=== PATIENT | female | born 1995 | race Caucasian/White ===

== ENCOUNTER 2016-04-11 19:35 | Emergency (ER) | payer OTHER ==
[2016-04-11 19:43] VITALS: BP 131/67
[2016-04-11] MEDS ORDERED: Ondansetron ODT TAB* 4 MG PO ONE (19:55)
[2016-04-11] MEDS ORDERED: Acetaminophen TAB* 325 MG PO ONE (19:58)
--- NOTE | 2016-04-11 20:00 | UC ---
UC General HPI - HPI Summary HPI Summary: pt c/o of sudden on set of myalgia, nausea, diarrhea, headache and decreased appetite that began last night about 1 hour after eating a sandwich from a gas station. - History of Current Complaint Chief Complaint: UCGeneralIllness Stated Complaint: NAUSEA/BODYACHES/DIARRHEA Time Seen by Provider: 04/11/16 19:38 Hx Obtained From: Patient Onset/Duration: Sudden Onset, Lasting Hours Timing: Constant Onset Severity: Mild Current Severity: Mild Associated Signs & Symptoms: Positive: Diarrhea, Fever, Headache - Allergy/Home Medications Allergies/Adverse Reactions: Allergies Allergy/AdvReac Type Severity Reaction Status Date / Time No Known Allergies Allergy Verified 04/11/16 19:43 PMH/Surg Hx/FS Hx/Imm Hx Previously Healthy: Yes Endocrine History Of: Denies: Diabetes, Thyroid Disease Cardiovascular History Of: Denies: Cardiac Disorders, Hypertension, Pacemaker/ICD Respiratory History Of: Denies: COPD, Asthma GI/ History Of: Denies: Ulcer - Surgical History Surgical History: None - Family History Known Family History: Positive: Diabetes - maternal grandfather Negative: Cardiac Disease, Hypertension, Blood Disorder - Social History Lives: With Family Alcohol Use: None Substance Use Type: None Smoking Status (MU): Former Smoker Review of Systems Constitutional: Fever, Chills, Fatigue Skin: Negative Eyes: Negative ENT: Negative Respiratory: Negative Cardiovascular: Negative Gastrointestinal: Abdominal Pain, Diarrhea, Other - nausea Genitourinary: Negative Motor: Negative Neurovascular: Negative Musculoskeletal: Myalgia Neurological: Headache Psychological: Negative All Other Systems Reviewed And Are Negative: Yes Physical Exam Triage Information Reviewed: Yes Appearance: Ill-Appearing Vital Signs: Initial Vital Signs Temp 100.0 F 04/11/16 19:40 Pulse 111 04/11/16 19:40 Resp 16 04/11/16 19:40 BP 131/67 04/11/16 19:40 Pulse Ox 99 04/11/16 19:40 Eye Exam: Normal ENT Exam: Normal Neck exam: Normal Respiratory Exam: Normal Cardiovascular Exam: Normal Abdominal Exam: Other Abdomen Description: Positive: Other: - generalized tenderness with palpation Musculoskeletal Exam: Normal Neurological Exam: Normal Psychological Exam: Normal Skin Exam: Normal Course/Dx - Differential Dx - Multi-Symptom Differential Diagnoses: Other - food poisoning Provider Diagnoses: gastroenteritis. food poisoning-? Discharge - Discharge Plan Condition: Stable Disposition: HOME Prescriptions: Ondansetron ODT TAB* [Zofran Odt TAB*] 8 mg PO Q8H PRN #12 tab.odt PRN Reason: Nausea Patient Education Materials: Gastroenteritis (ED), Food Poisoning (ED) Forms: *Work Release Referrals: Good Cain MD [Primary Care Provider] -
== END 2016-04-11 20:18 | disposition home or self-care (01) ==
LOC: UCCORT 19:35
DX: K52.9 Noninfective gastroenteritis and colitis, unspecified (principal); Z87.891 Personal history of nicotine dependence
CPT/HCPCS: 99212; A9270-GY; G0463

== ENCOUNTER 2016-06-16 17:29 | Emergency (ER) | payer OTHER | END 2016-06-16 19:08 | disposition left against medical advice (07) | LOC: UCCORT 17:29 | DX: K08.89 Other specified disorders of teeth and supporting structures (principal); Z53.21 Procedure and treatment not carried out due to patient leaving prior to being seen by health care provider ==

== ENCOUNTER 2016-09-17 22:09 | Emergency (ER) | payer OTHER ==
--- NOTE | 2016-09-17 23:21 | ED ---
Addi Carmen Salem, scribed for Panfilo Anand MD on 09/17/16 at 2317 . Head Injury - HPI Summary HPI Summary: Patient is a 20 y/o F who presents to the ED with s/p fall at 2100 today. She had used EtOH and lost footing while ambulating. She reports GRESHAM and burning to left-side of head. She denies N/V or LOC. She denies taking any medication for pain. - History Of Current Complaint Chief Complaint: EDGeneral Stated Complaint: FALL/HEAD INJURY Time Seen by Provider: 09/17/16 23:13 Hx Obtained From: Patient Hx Last Menstrual Period: 03/31/16 Mechanism Of Injury: Fall From A Standing Position Onset/Duration: Started Hours Ago, Traumatic, Still Present Onset of Pain: Immediate Severity Currently: Moderate Severity Initially: Moderate Pain Intensity: 9 Pain Scale Used: 0-10 Numeric Location of Head Injury: Other: - Left-side. Location: Discrete At: - Head. Associated Signs And Symptoms: Negative - Allergies/Home Medications Allergies/Adverse Reactions: Allergies Allergy/AdvReac Type Severity Reaction Status Date / Time No Known Allergies Allergy Verified 09/17/16 22:14 PMH/Surg Hx/FS Hx/Imm Hx Endocrine/Hematology History: Denies: Hx Diabetes, Hx Thyroid Disease Cardiovascular History: Denies: Hx Hypertension, Hx Pacemaker/ICD Respiratory History: Denies: Hx Asthma, Hx Chronic Obstructive Pulmonary Disease (COPD) GI History: Denies: Hx Ulcer Sensory History: Denies: Hx Hearing Aid Psychiatric History: Denies: Hx Panic Disorder Infectious Disease History: Denies: Hx Clostridium Difficile, Hx Hepatitis, Hx Human Immunodeficiency Virus (HIV), Hx of Known/Suspected MRSA, Hx Shingles, Hx Tuberculosis, Hx Known/ Suspected VRE, Hx Known/Suspected VRSA, History Other Infectious Disease, Traveled Outside the [place] in Last 30 Days - Family History Known Family History: Positive: Diabetes - maternal grandfather Negative: Cardiac Disease, Hypertension, Blood Disorder - Social History Alcohol Use: None Substance Use Type: Reports: None Smoking Status (MU): Former Smoker Review of Systems Negative: Fever Negative: Vomiting, Nausea Neurological: Other - Burning, left side of head. No LOC. Positive: Headache All Other Systems Reviewed And Are Negative: Yes Physical Exam Triage Information Reviewed: Yes Vital Signs On Initial Exam: Initial Vitals Temp Pulse Resp BP Pulse Ox 98.4 F 85 16 137/83 100 09/17/16 22:10 09/17/16 22:10 09/17/16 22:10 09/17/16 22:10 09/17/16 22:10 Vital Signs Reviewed: Yes Appearance: Positive: Well-Appearing, No Pain Distress Skin: Positive: Warm Head/Face: Positive: Normal Head/Face Inspection Eyes: Positive: JYOTI Neck: Positive: Supple Respiratory/Lung Sounds: Positive: Clear to Auscultation, Breath Sounds Present Cardiovascular: Positive: RRR Abdomen Description: Positive: Nontender, Soft Bowel Sounds: Positive: Present Musculoskeletal: Positive: Strength/ROM Intact Neurological: Positive: Sensory/Motor Intact, Alert, Oriented to Person Place, Time, Normal Gait Diagnostics - Vital Signs Vital Signs Temp Pulse Resp BP Pulse Ox 09/17/16 22:10 98.4 F 85 16 137/83 100 - Laboratory Lab Statement: Any lab studies that have been ordered have been reviewed, and results considered in the medical decision making process. - CT BRAIN CT Interpretation Completed By: Radiologist - Impression: No mass effect or intracranial hemorrhage. No acute traumatic injuries identified. Re-Evaluation - Re-Evaluation First Eval Re-Evaluation Time: 00:13 Change: Improved Comment: Reviewed results. Head Injury Course/Dx Course Of Treatment: 20 y/o F presents with s/p fall at 2100 today. She had used EtOH and lost footing while ambulating. She reports GRESHAM and burning to left- side of head. She denies N/V or LOC. CT of brain shows, per radiology, Impression: No mass effect or intracranial hemorrhage. No acute traumatic injuries identified. Pt will be DC'd. - Diagnoses Provider Diagnoses: Closed head injury Discharge - Discharge Plan Condition: Stable Disposition: HOME Patient Education Materials: Head Injury (ED) Referrals: Good Cain MD [Primary Care Provider] - Additional Instructions: Please follow up with your primary care provider. The documentation as recorded by the Addi corbin Salem accurately reflects the service I personally performed and the decisions made by Kika duran David, MD.
[2016-09-18 00:28] VITALS: BP 121/76
--- NOTE | 2016-09-18 08:34 | RAD ---
Indication: Headaches after fall. CT of the brain was performed without IV contrast. No prior study is available for comparison. Ventricular structures are midline. No midline shift is noted. The extra-axial spaces are unremarkable. There is no evidence of intracranial mass or hemorrhage. No other high or low density lesions are identified. IMPRESSION: No intracranial mass or hemorrhage is noted.
== END 2016-09-18 00:27 | disposition home or self-care (01) ==
LOC: ED 22:09
DX: S09.90XA Unspecified injury of head, initial encounter (principal); R51 Headache; W19.XXXA Unspecified fall, initial encounter; Y93.9 Activity, unspecified; Y92.9 Unspecified place or not applicable; Z87.891 Personal history of nicotine dependence
CPT/HCPCS: 70450; 99282

== ENCOUNTER 2016-11-21 13:53 | Emergency (ER) | payer BC, OTHER ==
[2016-11-21] MEDS ORDERED: Ondansetron ODT TAB* 4 MG PO ONE (16:31)
[2016-11-21] MEDS ORDERED: Ketorolac INJ* 60 MG/2 ML VIAL IM ONE (16:31)
[2016-11-21] MEDS ORDERED: Famotidine TAB* 20 MG PO ONE (16:31)
[2016-11-21 16:33] VITALS: BP 120/73
--- NOTE | 2016-11-21 16:46 | UC ---
UC General HPI - HPI Summary HPI Summary: patient has 2 complaints: 1. N/V/D since last night, she thinks she ate somethig at [employer] that did not sit well with her, 2. do to the vomiting feels like her sciatica has acted up, has a known growth on her spine that has been causing some impingment - History of Current Complaint Stated Complaint: FOOD POISONING Time Seen by Provider: 11/21/16 16:31 Hx Obtained From: Patient Hx Last Menstrual Period: 03/31/16 Onset/Duration: Sudden Onset, Lasting Hours Timing: Constant Onset Severity: Moderate Current Severity: Moderate Associated Signs & Symptoms: Positive: Back Pain, Diarrhea, Vomiting - Allergy/Home Medications Allergies/Adverse Reactions: Allergies Allergy/AdvReac Type Severity Reaction Status Date / Time No Known Allergies Allergy Verified 11/21/16 16:30 PMH/Surg Hx/FS Hx/Imm Hx Previously Healthy: Yes - Surgical History Surgical History: None - Family History Known Family History: Positive: Diabetes - maternal grandfather Negative: Cardiac Disease, Hypertension, Blood Disorder - Social History Alcohol Use: None Substance Use Type: None Smoking Status (MU): Former Smoker Review of Systems Constitutional: Negative Skin: Negative Eyes: Negative ENT: Negative Respiratory: Negative Cardiovascular: Negative Gastrointestinal: Abdominal Pain, Vomiting, Diarrhea, Nausea Genitourinary: Negative Motor: Negative Neurovascular: Negative Musculoskeletal: Arthralgia, Myalgia, Other: - radiates down left leg Neurological: Negative Psychological: Negative Is Patient Immunocompromised?: No All Other Systems Reviewed And Are Negative: Yes Physical Exam Triage Information Reviewed: Yes Appearance: Well-Nourished, Ill-Appearing, Pain Distress Vital Signs Reviewed: Yes Eye Exam: Normal ENT Exam: Normal Dental Exam: Normal Neck exam: Normal Respiratory Exam: Normal Respiratory: Positive: Chest non-tender, Lungs clear, Normal breath sounds Cardiovascular Exam: Normal Cardiovascular: Positive: RRR, No Murmur, Pulses Normal - LLL pain with palpation, mild Abdomen Description: Positive: No Organomegaly, CVA Tenderness (R) - negn, CVA Tenderness (L) - eg Bowel Sounds: Positive: Hyperactive Musculoskeletal Exam: Normal Neurological Exam: Normal Psychological Exam: Normal Skin Exam: Normal Course/Dx - Course Course Of Treatment: hx obtained, exam performed ,meds reviewed, given meds for symtpom relief, improvement with toradol for back pain and zofran for the nausea - Differential Dx - Multi-Symptom Provider Diagnoses: nausea/ vomiting/diarrhea. sciatica Discharge - Discharge Plan Condition: Stable Disposition: HOME Patient Education Materials: Acute Nausea and Vomiting (ED) Referrals: Good Cain MD [Primary Care Provider] - Additional Instructions: 1. increase fluid intake as tolerated, rest 2. Use the medication as prescribed. 3. Follow up if not improving in the next 24-48 hours 4. No ibuprofen or aleve for the next 8 hours due to the Toradol shot
== END 2016-11-21 17:10 | disposition home or self-care (01) ==
LOC: UCCORT 13:53
DX: R11.2 Nausea with vomiting, unspecified (principal); R19.7 Diarrhea, unspecified; M54.30 Sciatica, unspecified side; Z87.891 Personal history of nicotine dependence
CPT/HCPCS: 96372; 99212; A9270-GY; G0463; J1885

== ENCOUNTER 2017-04-08 09:26 | Emergency (ER) | payer BC ==
[2017-04-08 12:52] VITALS: BP 124/74
--- NOTE | 2017-04-08 13:09 | UC ---
FLU HPI - HPI Summary HPI Summary: Pt c/o sudden onset of fatigue and nausea. Pt is concerned for . Pt is not consistent with use of BCP. Last period in 02/20 - History of Current Complaint Chief Complaint: UCGeneralIllness Stated Complaint: NAUSEA Time Seen by Provider: 04/08/17 13:00 Hx Obtained From: Patient Hx Last Menstrual Period: 02/23/17 ?: No Onset/Duration: Sudden Onset, Lasting Days - 3, Still Present Severity Currently: Mild Severity Initially: Mild Pain Intensity: 0 Associated Signs & Symptoms: Positive: Myalgia, Nasal Congestion - Risk Factors Influenza Risk Factors: Negative - Allergy/Home Medications Allergies/Adverse Reactions: Allergies Allergy/AdvReac Type Severity Reaction Status Date / Time No Known Allergies Allergy Verified 04/08/17 12:48 Home Medications: Home Medications ALPRAZolam TAB* [Xanax TAB*] 0.5 mg PO TID PRN 04/08/17 [History Confirmed 04/08] Citalopram TAB* [CeleXA TAB*] 10 mg PO DAILY 04/08/17 [History Confirmed ] PMH/Surg Hx/FS Hx/Imm Hx Previously Healthy: Yes - Surgical History Surgical History: None - Family History Known Family History: Positive: Diabetes - maternal grandfather Negative: Cardiac Disease, Hypertension, Blood Disorder - Social History Occupation: Employed Full-time Lives: With Family Alcohol Use: Occasionally Substance Use Type: None Smoking Status (MU): Former Smoker Have You Smoked in the Last Year: No Review of Systems Constitutional: Fatigue Skin: Negative Eyes: Negative ENT: Negative Respiratory: Negative Cardiovascular: Negative Gastrointestinal: Nausea Genitourinary: Negative Motor: Negative Neurovascular: Negative Musculoskeletal: Negative Neurological: Negative Psychological: Negative Is Patient Immunocompromised?: No All Other Systems Reviewed And Are Negative: Yes Physical Exam Triage Information Reviewed: Yes Appearance: Well-Appearing Vital Signs: Initial Vital Signs Temp 98.8 F 04/08/17 12:47 Pulse 77 04/08/17 12:47 Resp 16 04/08/17 12:47 BP 124/74 04/08/17 12:47 Pulse Ox 100 04/08/17 12:47 Vital Signs Reviewed: Yes Eye Exam: Normal ENT Exam: Normal Dental Exam: Normal Neck exam: Normal Respiratory Exam: Normal Cardiovascular Exam: Normal Abdominal Exam: Normal Abdomen Description: Positive: Nontender Musculoskeletal Exam: Normal Neurological Exam: Normal Psychological Exam: Normal Skin Exam: Normal Flu Course/Dx - Differential Dx/Diagnosis Differential Diagnosis/HQI/PQRI: Bronchitis, Influenza, Other - Provider Diagnoses: nausea. viral syndrome Discharge - Discharge Plan Condition: Stable Disposition: HOME Patient Education Materials: Viral Syndrome (ED) Referrals: Good Cain MD [Primary Care Provider] - If Needed Additional Instructions: Please follow up with your PCP as needed or return to clinic as needed.
== END 2017-04-08 13:15 | disposition home or self-care (01) ==
LOC: UCCORT 09:26
DX: R11.0 Nausea (principal); B34.9 Viral infection, unspecified; Z32.02 Encounter for pregnancy test, result negative; Z72.89 Other problems related to lifestyle; Z87.891 Personal history of nicotine dependence
CPT/HCPCS: 84702; 99211; G0463

== ENCOUNTER 2017-06-14 16:16 | Emergency (ER) | payer BC ==
--- OUTSIDE RECORDS SUMMARY | 2017-06-14 16:40 | XMS REPORT ---
:1995 External Reference #:[id number] Author Organization [facility] 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 Moisés Charles NP Primary Care Physician Unavailable Payers Type Date Identification Numbers Payment Provider Subscriber Commercial Policy Number: [id number] Kwame Kimball PayID: [id number] [address] [address] [place] [address] Problems Date Description Provider Status Onset: 05/04/2017 Chronic interstitial cystitis LOUISE Del Rosario Active Note: managed by Urology Onset: 05/04/2017 Generalized anxiety disorder LOUISE Del Rosario Active Onset: 05/04/2017 Headache LOUISE Del Rosario Active Onset: 05/04/2017 Asthma without status asthmaticus LOUISE Del Rosario Active Family History Date Family Member(s) Problem(s) Comments Father No Current Problems Mother Anxiety Mother Depression Mother Endometriosis Paternal Grandfather Diabetes Maternal Grandmother Breast Cancer Social History Type Date Description Comments Lives With Mother Diet Patient follows no dietary restrictions Occupation [employer] ETOH Use Never used alcohol ETOH Use Occasionally consumes alcohol Smoking Patient is a former smoker Daily Caffeine Current Caffeine User 2-3 drinks daily Allergies, Adverse Reactions, Alerts Date Description Reaction Status Severity Comments 04/15/2017 NKDA active Medications Medication Date Status Form Strength Qnty SIG Indications Ordering Provider Ondansetron HCL 04/22 Active Tablets 4mg 24tab 1 tab N83.209 s every 6hr Melvin, CORK INSULATOR HELPER as needed for nausea Amitriptyline 04/15 Active Tablets 25mg 15tab 1/2 tablet R51 [facility] s by mouth Clcarol, CORK INSULATOR HELPER every night an hour before at bedtime Ventolin HFA 04/15 Active Aerosol 108(90Bas 18gm 2 puffs by J45.998 [facility] e) mouth Clune, CORK INSULATOR HELPER mcg/Act every 4 hours as needed Alprazolam Active Tablets 0.5mg Unknown /0000 Citalopram Active Tablets 40mg White, Chong Hydrobromide /0000 L, RN CORK INSULATOR HELPER Tri-Sprintec Active Tablets 0.18/0.21 White, Chong /0000 5/0.25 L, RN CORK INSULATOR HELPER mg-35 mcg Oxycodone-Aceta 04/22 Hx Tablets 5-325mg 28tab 1 by mouth N83.209 madelyn Albrecht s q6 hours MD - as needed 05/23 moderate to severe pain Reference #: [id number] Tramadol HCL Hx Tablets 50mg White, Chong /0000 L, RN CORK INSULATOR HELPER - 05/23 Immunizations CPT Code Status Date Vaccine Lot # [id number] Given 04/15/2017 Influenza Virus Vaccine, Quadrivalent, Slit Virus, [id number] Im Use Vital Signs Date Vital Result Comment 05/23/2017 BP Systolic Sitting Left Arm 126 mmHg BP Diastolic Sitting Left Arm 76 mmHg Heart Rate 88 /min Respiratory Rate 18 /min Height 63 inches 5'3" Weight 144.25 lb BMI (Body Mass Index) 25.5 kg/m2 BSA (Body Surface Area) 1.68 m2 [place] body weight in kilograms 52 04/22/2017 BP Systolic Sitting Left Arm 114 mmHg BP Diastolic Sitting Left Arm 72 mmHg Heart Rate 80 /min Respiratory Rate 18 /min Height 63 inches 5'3" Weight 144.12 lb BMI (Body Mass Index) 25.5 kg/m2 BSA (Body Surface Area) 1.68 m2 [place] body weight in kilograms 52 04/15/2017 BP Systolic Sitting Left Arm 118 mmHg BP Diastolic Sitting Left Arm 72 mmHg Heart Rate 72 /min Respiratory Rate 18 /min Height 63 inches 5'3" Weight 142.12 lb BMI (Body Mass Index) 25.2 kg/m2 BSA (Body Surface Area) 1.67 m2 [place] body weight in kilograms 52 Last Menstrual Period [id number] Results Test Date Test Result H/L Range Note Urine Culture 04/22/2017 Urine Culture MIXED URETHRAL F <SEE 1, 2 NOTE> Quantity 10,000 - 50,000 <SEE NOTE> 1, 3 1 R30.0 2 MIXED URETHRAL ASHLEY 3 10,000 - 50,000 CFU/mL Procedures Date CPT Code Description Status 01/21/2017 59735 Echocardiogram Complete Completed Encounters Type Date Location Provider CPT E/M Dx Office Visit 05/23/2017 [facility] LOUISE Del Rosario 89861 N30.10 2:15p R51 Office Visit 04/15/2017 11:15a [facility] LOUISE Del Rosario 97407 R35.0 M54.5 F41.1 R51 J45.998 Plan of Care Future Appointment(s):06/16/2017 3:00 pm - LOUISE Del Rosario at [facility]05/23/2017 - JAZMIN Del RosarioPN30.10 Interstitial cystitis ( chronic) without hematuriaComments:with h/o ovarian cysts as well as interstitial cystitis would send to urogynecology groupFollow up:3-4 weeks recheck HAR51 HeadacheComments:Improved on Amitriptyline - however with S/E of tiredness. Will decrease Amitriptyline to 1/2 tabletto see if this decreases the day time symptoms
--- OUTSIDE RECORDS SUMMARY | 2017-06-14 16:40 | XMS REPORT ---
:1995 External Reference #:[id number] Author Organization [facility] 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 Moisés Charles NP Primary Care Physician Unavailable Payers Type Date Identification Numbers Payment Provider Subscriber Commercial Policy Number: [id number] Kwame Kimball PayID: [id number] [address] [address] [place] [address] Problems Date Description Provider Status Onset: 05/04/2017 [...] follows no dietary restrictions Occupation [employer] ETOH Use Never used alcohol ETOH Use Occasionally consumes alcohol Smoking Patient is a former smoker Daily Caffeine Current Caffeine User 2-3 drinks daily Allergies, Adverse Reactions, Alerts Date Description Reaction Status Severity Comments 04/15/2017 NKDA active Medications Medication Date Status Form Strength Qnty SIG Indications Ordering Provider Ondansetron HCL 04/22 Active Tablets 4mg 24tab 1 tab N83.209 s every 6hr Melvin, FLAT IRONER as needed for nausea Amitriptyline 04/15 Active Tablets 25mg 15tab 1/2 tablet R51 [facility] s by mouth Clcarol, FLAT IRONER every night an hour before at bedtime Ventolin HFA 04/15 Active Aerosol 108(90Bas 18gm 2 puffs by J45.998 [facility] e) mouth Clune, FLAT IRONER mcg/Act every 4 hours as needed Alprazolam Active Tablets 0.5mg Unknown /0000 Citalopram Active Tablets 40mg White, Chong Hydrobromide /0000 L, RN FLAT IRONER Tri-Sprintec Active Tablets 0.18/0.21 White, Chong /0000 5/0.25 L, RN FLAT IRONER mg-35 mcg Oxycodone-Aceta 04/22 Hx Tablets 5-325mg 28tab 1 by mouth N83.209 madelyn Albrecht s q6 hours MD - as needed 05/23 moderate to severe pain Reference #: [id number] Tramadol HCL Hx Tablets 50mg White, Chong /0000 L, RN FLAT IRONER - 05/23 Immunizations CPT Code Status Date Vaccine Lot # [id number] Given 04/15/2017 Influenza Virus Vaccine, Quadrivalent, Slit Virus, [id number] Im Use Vital Signs Date Vital Result Comment 05/23/2017 BP Systolic Sitting Left Arm 126 mmHg BP Diastolic Sitting Left Arm 76 mmHg Heart Rate 88 /min Respiratory Rate 18 /min Height 63 inches 5'3" Weight 144.25 lb BMI (Body Mass Index) 25.5 kg/m2 BSA (Body Surface Area) 1.68 m2 [place] body weight in kilograms 52 04/22/2017 BP Systolic Sitting Left Arm 114 mmHg BP Diastolic Sitting Left Arm 72 mmHg Heart Rate 80 /min Respiratory Rate 18 /min Height 63 inches 5'3" Weight 144.12 lb BMI (Body Mass Index) 25.5 kg/m2 BSA (Body Surface Area) 1.68 m2 [place] body weight in kilograms 52 04/15/2017 BP Systolic Sitting Left Arm 118 mmHg BP Diastolic Sitting Left Arm 72 mmHg Heart Rate 72 /min Respiratory Rate 18 /min Height 63 inches 5'3" Weight 142.12 lb BMI (Body Mass Index) 25.2 kg/m2 BSA (Body Surface Area) 1.67 m2 [place] body weight in kilograms 52 Last Menstrual Period [id number] Results Test Date Test Result H/L Range Note Urine Culture 04/22/2017 Urine Culture MIXED URETHRAL F <SEE 1, 2 NOTE> Quantity 10,000 - 50,000 <SEE NOTE> 1, 3 1 R30.0 2 MIXED URETHRAL ASHLEY 3 10,000 - 50,000 CFU/mL Procedures Date CPT Code Description Status 01/21/2017 04707 Echocardiogram Complete Completed Encounters Type Date Location Provider CPT E/M Dx Office Visit 05/23/2017 [facility] LOUISE Del Rosario 50218 N30.10 2:15p R51 Office Visit 04/22/2017 2:00p [facility] LOUISE Del Rosario 58837 N83.209 R30.0 Office Visit 04/15/2017 11:15a [facility] LOUISE Del Rosario 62499 R35.0 M54.5 F41.1 R51 J45.998 Plan of Care Future Appointment(s):06/16/2017 3:00 pm - LOUISE Del Rosario at [facility]05/23/2017 - MUSA Dle Rosario30.10 Interstitial cystitis ( chronic) without hematuriaComments:with h/o ovarian cysts as well as interstitial cystitis would send to urogynecology groupFollow up:3-4 weeks recheck HAR51 HeadacheComments:Improved on Amitriptyline - however with S/E of tiredness. Will decrease Amitriptyline to 1/2 tabletto see if this decreases the day time symptoms
--- OUTSIDE RECORDS SUMMARY | 2017-06-14 16:40 | XMS REPORT ---
:1995 External Reference #:[id number] Author Organization [facility] Address [address], [address] [place] [address] Phone [phone] Care Team Providers Name Role Phone Moisés Charles NP Care Team Information Community Resource Consultant Unavailable Moisés Charles NP Primary Care Physician Unavailable Payers Type Date Identification Numbers Payment Provider Subscriber Commercial Policy Number: [id number] Kwame Kimball PayID: [id number] [address] [address] [place] [address] Problems Date Description Provider Status Onset: 05/04/2017 [...] follows no dietary restrictions Occupation [employer] ETOH Use Never used alcohol ETOH Use Occasionally consumes alcohol Smoking Patient is a former smoker Daily Caffeine Current Caffeine User 2-3 drinks daily Allergies, Adverse Reactions, Alerts Date Description Reaction Status Severity Comments 04/15/2017 NKDA active Medications Medication Date Status Form Strength Qnty SIG Indications Ordering Provider Ondansetron HCL 04/22 Active Tablets 4mg 24tab 1 tab N83.209 s every 6hr Melvin, COMMERCIAL HVAC TECHNICIAN as needed for nausea Amitriptyline 04/15 Active Tablets 25mg 15tab 1/2 tablet R51 [facility] s by mouth Clcarol, COMMERCIAL HVAC TECHNICIAN every night an hour before at bedtime Ventolin HFA 04/15 Active Aerosol 108(90Bas 18gm 2 puffs by J45.998 [facility] e) mouth Clune, COMMERCIAL HVAC TECHNICIAN mcg/Act every 4 hours as needed Alprazolam Active Tablets 0.5mg Unknown /0000 Citalopram Active Tablets 40mg White, Chong Hydrobromide /0000 L, RN COMMERCIAL HVAC TECHNICIAN Tri-Sprintec Active Tablets 0.18/0.21 White, Chong /0000 5/0.25 L, RN COMMERCIAL HVAC TECHNICIAN mg-35 mcg Oxycodone-Aceta 04/22 Hx Tablets 5-325mg 28tab 1 by mouth N83.209 madelyn Albrecht s q6 hours MD - as needed 05/23 moderate to severe pain Reference #: [id number] Tramadol HCL Hx Tablets 50mg White, Chong /0000 L, RN COMMERCIAL HVAC TECHNICIAN - 05/23 Immunizations CPT Code Status Date Vaccine Lot # [id number] Given 04/15/2017 Influenza Virus Vaccine, Quadrivalent, Slit Virus, [id number] Im Use Vital Signs Date Vital Result Comment 05/23/2017 BP Systolic Sitting Left Arm 126 mmHg BP Diastolic Sitting Left Arm 76 mmHg Heart Rate 88 /min Respiratory Rate 18 /min Height 63 inches 5'3" Weight 144.25 lb BMI (Body Mass Index) 25.5 kg/m2 BSA (Body Surface Area) 1.68 m2 [place] body weight in kilograms 52 04/22/2017 BP Systolic Sitting Left Arm 114 mmHg BP Diastolic Sitting Left Arm 72 mmHg Heart Rate 80 /min Respiratory Rate 18 /min Height 63 inches 5'3" Weight 144.12 lb BMI (Body Mass Index) 25.5 kg/m2 BSA (Body Surface Area) 1.68 m2 [place] body weight in kilograms 52 04/15/2017 BP Systolic Sitting Left Arm 118 mmHg BP Diastolic Sitting Left Arm 72 mmHg Heart Rate 72 /min Respiratory Rate 18 /min Height 63 inches 5'3" Weight 142.12 lb BMI (Body Mass Index) 25.2 kg/m2 BSA (Body Surface Area) 1.67 m2 [place] body weight in kilograms 52 Last Menstrual Period [id number] Results Test Date Test Result H/L Range Note Urine Culture 04/22/2017 Urine Culture MIXED URETHRAL F <SEE 1, 2 NOTE> Quantity 10,000 - 50,000 <SEE NOTE> 1, 3 1 R30.0 2 MIXED URETHRAL ASHLEY 3 10,000 - 50,000 CFU/mL Procedures Date CPT Code Description Status 01/21/2017 07651 Echocardiogram Complete Completed Encounters Type Date Location Provider CPT E/M Dx Office Visit 05/23/2017 [facility] LOUISE Del Rosario 17952 N30.10 2:15p R51 Plan of Care Future Appointment(s):06/16/2017 3:00 pm - LOUISE Del Rosario at [facility]05/23/2017 - JAZMIN Del RosarioPN30.10 Interstitial cystitis ( chronic) without hematuriaComments:with h/o ovarian cysts as well as interstitial cystitis would send to urogynecology groupFollow up:3-4 weeks recheck HAR51 HeadacheComments:Improved on Amitriptyline - however with S/E of tiredness. Will decrease Amitriptyline to 1/2 tabletto see if this decreases the day time symptoms
[2017-06-14 16:48] VITALS: BP 122/80
--- NOTE | 2017-06-14 18:03 | UC ---
UC General HPI - HPI Summary HPI Summary: pt c/o burning with urination for about 2 weeks. pt was seen in ER and dx with a ruptured ovarian cyst. The ER did a pelvic and sent cutures. she f/u with Dr Jack in mid May after that visit. She had some vaginal itching and was tx for BV with Clindamycin. The itching resolved. She noted some urinary burning then which is still present thus here. She denies any discharge or odor but does have a new partner. no abdominal pain or fever. - History of Current Complaint Chief Complaint: UCGU Stated Complaint: urinary Time Seen by Provider: 06/14/17 17:33 Hx Obtained From: Patient Hx Last Menstrual Period: 05/27/17 Timing: Constant Pain Intensity: 0 Aggravating: nothing Alleviating: nothing Associated Signs & Symptoms: Positive: Dysuria. Negative: Abdominal Pain, Fever - Allergy/Home Medications Allergies/Adverse Reactions: Allergies Allergy/AdvReac Type Severity Reaction Status Date / Time No Known Allergies Allergy Verified 06/14/17 16:48 Home Medications: Home Medications Amitriptyline TAB* [Elavil TAB*] 25 mg PO BEDTIME 06/14/17 [History Confirmed ] Norgestimate-Ethinyl Estradiol [Trinessa Tablet] 1 each PO BEDTIME 06/14/17 [ History Confirmed 06/14/17] PMH/Surg Hx/FS Hx/Imm Hx - Additional Past Medical History Additional PMH: ovarian cyst, BV, cystitis Psychological History: Anxiety - Surgical History Surgical History: None - Family History Known Family History: Positive: Diabetes - maternal grandfather Negative: Cardiac Disease, Hypertension, Blood Disorder - Social History Lives: With Family Alcohol Use: Rare Substance Use Type: None Smoking Status (MU): Former Smoker Have You Smoked in the Last Year: No - Immunization History Vaccination Up to Date: Yes Review of Systems Constitutional: Negative Skin: Negative Eyes: Negative ENT: Negative Respiratory: Negative Cardiovascular: Negative Gastrointestinal: Negative Genitourinary: Dysuria Motor: Negative Neurovascular: Negative Musculoskeletal: Negative Neurological: Negative Psychological: Negative Is Patient Immunocompromised?: No All Other Systems Reviewed And Are Negative: Yes Physical Exam Triage Information Reviewed: Yes Appearance: Well-Appearing Vital Signs: Initial Vital Signs Temp 99.7 F 06/14/17 16:38 Pulse 73 06/14/17 16:38 Resp 17 06/14/17 16:38 BP 122/80 06/14/17 16:38 Pulse Ox 100 06/14/17 16:38 Vital Signs Reviewed: Yes Eyes: Positive: Conjunctiva Clear ENT: Positive: Normal ENT inspection Neck: Positive: Supple, Nontender, No Lymphadenopathy Respiratory: Positive: Lungs clear, Normal breath sounds Cardiovascular: Positive: RRR, No Murmur, Pulses Normal Abdomen Description: Positive: Nontender, No Organomegaly, Soft. Negative: CVA Tenderness (R), CVA Tenderness (L), Distended, Guarding Bowel Sounds: Positive: Present Pelvic Exam: Positive: External Exam Normal, Speculum Exam Normal - cervix friable, slight bleeding from R side of OS with culutres, No Cerv. Motion Tender , No Masses. Negative: Tender w/ Cervical Motion, Tender Adnexa, Tender Uterus Musculoskeletal: Positive: ROM Intact Neurological: Positive: Alert Psychological: Positive: Age Appropriate Behavior Skin Exam: Normal Diagnostics - Laboratory Diagnostic Studies Completed/Ordered: u/a=unremarkable, culture is pending. hcg= neg, pelvic cultures pending Course/Dx - Course Course Of Treatment: no acute abdomen, no overt std but cultures pending. will tx 3 days Bactrim and refer to cam maker - Differential Dx - Multi-Symptom Provider Diagnoses: Dysuria Discharge - Sign-Out/Discharge Documenting (check all that apply): Discharge - Discharge Plan Condition: Stable Disposition: HOME Prescriptions: Sulfamethox/Trimethoprim DS* [Bactrim DS 800/160 TAB*] 1 tab PO BID #6 tab Patient Education Materials: Dysuria (ED) Referrals: Ruma Charles NP [Primary Care Provider] - If Needed Panfilo Jack MD [Medical Doctor] - 3 Days - Billing Disposition and Condition Condition: STABLE Disposition: HOME
--- NOTE | 2017-06-17 07:07 | UC ---
- Progress Note Progress Note: notify pt no UTI stop antibiotic see pcp if still symptomatic Discharge - Sign-Out/Discharge Documenting (check all that apply): Post-Discharge Follow Up - Discharge Plan Condition: Stable Disposition: HOME Prescriptions: Sulfamethox/Trimethoprim DS* [Bactrim DS 800/160 TAB*] 1 tab PO BID #6 tab Patient Education Materials: Dysuria (ED) Referrals: Panfilo Jack MD [Medical Doctor] - 3 Days Ruma Charles NP [Primary Care Provider] - If Needed - Billing Disposition and Condition Condition: STABLE Disposition: HOME
== END 2017-06-14 18:19 | disposition home or self-care (01) ==
LOC: UCCORT 16:16
DX: R30.0 Dysuria (principal); Z87.891 Personal history of nicotine dependence; Z32.02 Encounter for pregnancy test, result negative
CPT/HCPCS: 81003; 84702; 87086; 87480; 87491; 87510; 87591; 87661; 99212; G0463

== ENCOUNTER 2017-08-17 18:28 | Emergency (ER) | payer SELFPAY ==
[2017-08-17 18:50] VITALS: BP 127/75
--- NOTE | 2017-08-17 19:10 | UC ---
UC General HPI - HPI Summary HPI Summary: 21 yo female c/o sore throat, myalgias, h/a. Mild cough, chest "tight". + itchy ears. No rash. No gi/gu sx. - History of Current Complaint Chief Complaint: UCGeneralIllness Stated Complaint: SORE THROAT Time Seen by Provider: 08/17/17 18:58 Hx Obtained From: Patient Hx Last Menstrual Period: 08/16/17 Pain Intensity: 8 - Allergy/Home Medications Allergies/Adverse Reactions: Allergies Allergy/AdvReac Type Severity Reaction Status Date / Time No Known Allergies Allergy Verified 08/17/17 18:47 PMH/Surg Hx/FS Hx/Imm Hx Previously Healthy: Yes Respiratory History: Asthma - Surgical History Surgical History: None - Family History Known Family History: Positive: Diabetes - maternal grandfather Negative: Cardiac Disease, Hypertension, Blood Disorder - Social History Alcohol Use: Rare Substance Use Type: None Smoking Status (MU): Former Smoker Have You Smoked in the Last Year: No - Immunization History Vaccination Up to Date: Yes Review of Systems Constitutional: Fatigue Skin: Negative Eyes: Negative ENT: Sore Throat, Other - see hpi Respiratory: Other - see hpi Cardiovascular: Negative Gastrointestinal: Negative Genitourinary: Negative Motor: Negative Neurovascular: Negative Musculoskeletal: Myalgia Neurological: Headache Psychological: Negative Is Patient Immunocompromised?: No All Other Systems Reviewed And Are Negative: Yes Physical Exam Triage Information Reviewed: Yes Appearance: Well-Nourished Vital Signs: Initial Vital Signs Temp 98.9 F 08/17/17 18:45 Pulse 96 08/17/17 18:45 Resp 14 08/17/17 18:45 BP 127/75 08/17/17 18:45 Pulse Ox 99 08/17/17 18:45 Vital Signs Reviewed: Yes Eye Exam: Normal ENT: Positive: Pharyngeal erythema, TM dull, Other - tonsillar sores, no lindsay exudates. uvula midline. tongue ok. Neck exam: Normal Neck: Positive: Supple, Nontender Respiratory Exam: Normal Respiratory: Positive: Chest non-tender, Lungs clear, Normal breath sounds, No respiratory distress, No accessory muscle use Cardiovascular Exam: Normal Cardiovascular: Positive: RRR, No Murmur, Pulses Normal, Brisk Capillary Refill Abdominal Exam: Normal Abdomen Description: Positive: Nontender Musculoskeletal Exam: Normal Neurological Exam: Normal - grossly nonfocal Psychological Exam: Normal - conversing easily and appropriately Skin Exam: Normal - no visible or reported rash Course/Dx - Course Course Of Treatment: RST x 2 attempted, both "invalid.". As such, throat cx sent. D/w pt. Will start abx, while awaiting cx results. She may have been exposed to mononucleosis in the past, not sure if she contracted it. As such, will test for this as well. Reviewed coa / tx plan. Questions as posed answered to the best of my ability. - Differential Dx - Multi-Symptom Provider Diagnoses: Acute tonsillitis Discharge - Sign-Out/Discharge Documenting (check all that apply): Discharge/Admit/Transfer - Discharge Plan Condition: Stable Disposition: HOME Prescriptions: Albuterol HFA INHALER* [Ventolin HFA Inhaler*] 1 - 2 puff INH Q6H PRN #1 mdi PRN Reason: Wheezing Amoxicillin PO (*) [Amoxicillin 875 MG (*)] 875 mg PO BID #20 tab Fluconazole [Diflucan 150 MG (NF)] 150 mg PO DAILY #2 tab Neomyc/Polym/HC 1% OTIC SUSP* [Cortisporin Otic Susp 1%*] 4 drop BOTH EARS TID # 1 btl Patient Education Materials: Tonsillitis (ED) Forms: *Work Release Referrals: Ruma Charles NP [Primary Care Provider] - Additional Instructions: Throat culture has been sent. Johnston test has been sent. If strep throat culture is negative, then you may stop the antibiotic. - Billing Disposition and Condition Condition: STABLE Disposition: Home
== END 2017-08-17 19:59 | disposition home or self-care (01) ==
LOC: UCCORT 18:28
DX: J03.90 Acute tonsillitis, unspecified (principal); R05 Cough; R07.89 Other chest pain; R51 Headache; M79.1 Myalgia; Z87.891 Personal history of nicotine dependence
CPT/HCPCS: 36415; 86308; 86664; 86665; 87070; 99212; G0463

== ENCOUNTER 2017-09-01 15:52 | Emergency (ER) | payer BC ==
--- NOTE | 2017-09-01 16:06 | UC ---
Complaint Female HPI - HPI Summary HPI Summary: 21 yo female presents with dysuria and vaginal discharge that began 2 days ago. She tells me that she has an history of interstitial cystitis, but recently developed urinary frequency and burning with urination. Also has noticed some white and yellow discharge vaginally. Was last sexually active 2-3 weeks ago with a new partner and the sex was unprotected. She would like STD testing today. Denies fever, chills, SOB, chest pain, abdominal pain, n/v/d/c. LMP was - History Of Current Complaint Stated Complaint: URINARY Time Seen by Provider: 09/01/17 16:06 Hx Obtained From: Patient Hx Last Menstrual Period: 08/16/17 Onset/Duration: Gradual Onset Timing: Constant Severity Initially: Mild Severity Currently: Mild Pain Intensity: 3 Pain Scale Used: 0-10 Numeric - Allergies/Home Medications Allergies/Adverse Reactions: Allergies Allergy/AdvReac Type Severity Reaction Status Date / Time No Known Allergies Allergy Verified 09/01/17 16:13 PMH/Surg Hx/FS Hx/Imm Hx - Additional Past Medical History Additional PMH: Interstitial cystitis Psychological History: Anxiety - Surgical History Surgical History: None - Family History Known Family History: Positive: Diabetes - maternal grandfather Negative: Cardiac Disease, Hypertension, Blood Disorder - Social History Lives: With Family Alcohol Use: Rare Substance Use Type: None Smoking Status (MU): Former Smoker Have You Smoked in the Last Year: No - Immunization History Vaccination Up to Date: Yes Review of Systems Constitutional: Negative Skin: Negative Respiratory: Negative Cardiovascular: Negative Gastrointestinal: Negative Genitourinary: Dysuria, Frequency, Vaginal/Penile Discharge Neurovascular: Negative Neurological: Negative Psychological: Negative All Other Systems Reviewed And Are Negative: Yes Physical Exam - Summary Physical Exam Summary: GENERAL: NAD. WDWN. No pain distress. SKIN: No rashes, sores, lesions, or open wounds. NECK: Supple. Nontender. No lymphadenopathy. CHEST: CTAB. No r/r/w. No accessory muscle use. Breathing comfortably and in no distress. CV: RRR. Without m/r/g. Pulses intact. Brisk cap refill. ABDOMEN: Soft. NTTP. No distention or guarding. No organomegaly. No CVA tenderness. Bowel sounds present NEURO: Alert. CN II-XII grossly intact. PSYCH: Age appropriate behavior. Triage Information Reviewed: Yes Vital Signs: Vital Signs: Temp Pulse Resp BP Pulse Ox 100.2 F 68 20 113/66 100 09/01/17 16:15 09/01/17 16:15 09/01/17 16:15 09/01/17 16:15 09/01/17 16:15 Laboratory Tests 09/01/17 16:29 POC Urine Color Yellow POC Urine Clarity Slightly cloudy POC Urine pH 7.5 POC Ur Specif Dighton 1.020 POC Urine Protein Negative POC Ur Glucose (UA) Negative POC Urine Ketones Negative POC Urine Blood Trace-intact A POC Urine Nitrite Negative POC Urine Bilirubin Negative POC Urine Urobilinogen 0.2 POC U Leukocyte Esteras Trace A Pelvic Exam: Positive: External Exam Normal, No Cerv. Motion Tender, No Masses, Discharge - Thin white, Other - Assisted by Ane RN. Negative: Active Bleeding, Lesions, Mass Complaint Female Dx - Course Course Of Treatment: UA with trace leuks. Vaginal exam is highly suspicious for BV. Will treat for BV and hold treatment for ?UTI as UA was weakly positive for infection. Will send urine for culture and treat if positive. Cultures obtained for vaginal GC/Chlamydia, BV, and yeast. Labs drawn for HIV, RPR, and Hepatitis. - Differential Dx/Diagnosis Provider Diagnoses: Bacterial Vaginosis Discharge - Sign-Out/Discharge Documenting (check all that apply): Discharge/Admit/Transfer - Discharge Plan Condition: Stable Disposition: HOME Prescriptions: metroNIDAZOLE [Flagyl] 500 mg PO BID #14 tablet Patient Education Materials: Bacterial Vaginosis (ED) Referrals: Ruma Charles NP [Primary Care Provider] - Additional Instructions: If you develop a fever, shortness of breath, chest pain, new or worsening symptoms - please call your PCP or go to the ED. - Billing Disposition and Condition Condition: STABLE Disposition: Home
[2017-09-01 16:22] VITALS: BP 113/66
== END 2017-09-01 17:07 | disposition home or self-care (01) ==
LOC: UCCORT 15:52
DX: N76.0 Acute vaginitis (principal); B96.89 Other specified bacterial agents as the cause of diseases classified elsewhere; Z87.891 Personal history of nicotine dependence
CPT/HCPCS: 36415; 80074; 81003; 86592; 86703; 87086; 87480; 87491; 87510; 87591; 87661; 99212; G0463

== ENCOUNTER 2017-12-02 15:55 | Emergency (ER) | payer BC ==
[2017-12-02 16:59] VITALS: BP 117/68
--- NOTE | 2017-12-02 17:23 | UC ---
Complaint Female HPI - HPI Summary HPI Summary: Per seasoning mixer: ""I think I might have a UTI. [Symptoms started] within the week. " Nausea without vomiting, suprapubic pressure, and urinary frequency for one week. "Odor" to urine today. "Strong" vaginal odor today. No increase in " normal ... pelvic pain". Recently missed control pills; negative home test last night. 09/01/17: positive gardnerella and normal urine culture." -Patient has been treated with gardnerella here in August. She denies any vaginal discharge at this time. Just odor. She does not have any pain in the right lower or left lower quadrants but only centrally. She has not been consistent with taking her control pills. She thinks her last menstrual period was around November 08. She has had unprotected sex since then with her boyfriend. Denies any STD risk. She took a home test yesterday that was negative. Has some urinary frequency. Urinary symptoms do seem consistent with interstitial cystitis. Her mom does have endometriosis. Patient follows with spent grain dryer. She has had bladder therapy for interstitial cystitis. She is not avoiding any food triggers. She denies any breast tenderness. She declines pelvic exam today. She has had some spotting on and off for murmur. In trying to get back on track with her control to regulate it but has not been successful. - History Of Current Complaint Chief Complaint: UCGU Stated Complaint: PERSONAL Time Seen by Provider: 12/02/17 16:54 Hx Last Menstrual Period: 11/09/17 Pain Intensity: 0 - Allergies/Home Medications Allergies/Adverse Reactions: Allergies Allergy/AdvReac Type Severity Reaction Status Date / Time No Known Allergies Allergy Verified 12/02/17 16:54 PMH/Surg Hx/FS Hx/Imm Hx Previously Healthy: Yes - Surgical History Surgical History: None - Family History Known Family History: Positive: Diabetes - maternal grandfather, Other - Mom with endometriosis Negative: Cardiac Disease, Hypertension, Blood Disorder - Social History Alcohol Use: Rare Substance Use Type: None Smoking Status (MU): Former Smoker Have You Smoked in the Last Year: No When Did the Patient Quit Smoking/Using Tobacco: 2017 - Immunization History Vaccination Up to Date: Yes Review of Systems Constitutional: Negative Skin: Negative Eyes: Negative ENT: Negative Respiratory: Negative Cardiovascular: Negative Gastrointestinal: Negative Genitourinary: Frequency Motor: Negative Neurovascular: Negative Musculoskeletal: Negative Neurological: Negative Psychological: Negative Is Patient Immunocompromised?: No All Other Systems Reviewed And Are Negative: Yes Physical Exam Triage Information Reviewed: Yes Appearance: Well-Appearing, No Pain Distress, Well-Nourished Vital Signs: Initial Vital Signs Temp 98.7 F 12/02/17 16:51 Pulse 78 12/02/17 16:51 Resp 16 12/02/17 16:51 BP 117/68 12/02/17 16:51 Pulse Ox 100 12/02/17 16:51 Eye Exam: Normal ENT Exam: Normal ENT: Positive: Pharynx normal Neck exam: Normal Neck: Positive: Supple, Nontender, No Lymphadenopathy Respiratory Exam: Normal Respiratory: Positive: Lungs clear, Normal breath sounds, No respiratory distress, No accessory muscle use Cardiovascular: Positive: RRR, No Murmur, Pulses Normal Abdomen Description: Positive: Soft, Other: - Mild suprapubic tenderness only. No right lower quadrant or left lower quadrant tenderness. Negative: CVA Tenderness (R), CVA Tenderness (L), Distended, Guarding Bowel Sounds: Positive: Present Musculoskeletal Exam: Normal Neurological Exam: Normal Psychological Exam: Normal Skin Exam: Normal Complaint Female Dx - Course Course Of Treatment: UA + 1 blood, rest neg. -treat for BV. increased risk w/ inconsistency of OCP w/ bleeing and spotting. pUrine HCG neg, but does not r/o completely w/ ~ 9/4 LMP. to ER with RLQ or LLQ pain. she verbalizes understanding to r/o ectopic . declines pelvic. would need if sx increase or persist. had full STD testing 08/22 - Differential Dx/Diagnosis Differential Diagnosis/HQI/PQRI: Endometriosis, Urinary Tract Infection Provider Diagnoses: BC, interstitial cystistis Discharge - Sign-Out/Discharge Documenting (check all that apply): Patient Departure All imaging exams completed and their final reports reviewed: No Studies - Discharge Plan Condition: Stable Disposition: HOME Prescriptions: metroNIDAZOLE [Flagyl 500 MG TAB] 500 mg PO BID #14 tab Patient Education Materials: Bacterial Vaginosis (ED), Interstitial Cystitis ( ED) Referrals: Ruma Charles NP [Primary Care Provider] - Additional Instructions: We talked about the recommendation to stop the control pills and take the placebo pills as directed due to your irregular schedule of taking it. Restart the next pack as directed after the placebo pills are done. Urine test only showed a small amount of blood without evidence for infection. test was negative, but this does not necessarily rule out due to the irregularity of taking the pill and last period date of ~ 11/08/17. If the abdominal pain localizes to either one side rather than centrally, you should immediately go to the emergency room. Do not drink alcohol with the flagyl. You should use condoms to help protect from STDs and . If your symptoms do not resolve, you may need to have cultures done and full pelvic exam by your PATIENT COORDINATOR. - Billing Disposition and Condition Condition: STABLE Disposition: Home
== END 2017-12-02 17:57 | disposition home or self-care (01) ==
LOC: UCCORT 15:55
DX: N30.10 Interstitial cystitis (chronic) without hematuria (principal)
CPT/HCPCS: 81003; 84702; 99212; G0463

== ENCOUNTER 2018-05-17 10:11 | Emergency (ER) | payer BC ==
[2018-05-17 11:44] VITALS: BP 125/66
--- NOTE | 2018-05-17 11:53 | UC ---
Throat Pain/Nasal Jonatan HPI - HPI Summary HPI Summary: Patient has had cold symptoms with head congestion, nasal congestion runny nose earache over the past 4 days. - History of Current Complaint Chief Complaint: UCGeneralIllness Stated Complaint: SINUS COMPLAINT,HEADACHE,CONGESTION Time Seen by Provider: 05/17/18 11:47 Hx Obtained From: Patient Hx Last Menstrual Period: 05/01/18 ?: No Onset/Duration: Gradual Onset Severity: Mild Pain Intensity: 6 Cough: Nonproductive Associated Signs & Symptoms: Positive: Sinus Discomfort, Nasal Discharge - Epiglottits Risk Factors Epiglottis Risk Factors: Negative - Allergies/Home Medications Allergies/Adverse Reactions: Allergies Allergy/AdvReac Type Severity Reaction Status Date / Time No Known Allergies Allergy Verified 05/17/18 11:41 PMH/Surg Hx/FS Hx/Imm Hx Previously Healthy: Yes - Surgical History Surgical History: None - Family History Known Family History: Positive: Diabetes - maternal grandfather, Other - Mom with endometriosis Negative: Cardiac Disease, Hypertension, Blood Disorder - Social History Alcohol Use: Rare Substance Use Type: None Smoking Status (MU): Former Smoker Have You Smoked in the Last Year: No When Did the Patient Quit Smoking/Using Tobacco: 2017 - Immunization History Vaccination Up to Date: Yes Review of Systems All Other Systems Reviewed And Are Negative: Yes Constitutional: Positive: Negative Skin: Positive: Negative Eyes: Positive: Negative ENT: Positive: Ear Ache, Nasal Discharge, Sinus Congestion, Sinus Pain/ Tenderness Respiratory: Positive: Cough - Nonproductive cough Cardiovascular: Positive: Negative Gastrointestinal: Positive: Negative Genitourinary: Positive: Negative Motor: Positive: Negative Neurovascular: Positive: Negative Musculoskeletal: Positive: Negative Neurological: Positive: Negative Psychological: Positive: Negative Is Patient Immunocompromised?: No Physical Exam Triage Information Reviewed: Yes Appearance: Well-Appearing, No Pain Distress, Well-Nourished Vital Signs: Initial Vital Signs Temp 99.1 F 05/17/18 11:41 Pulse 96 05/17/18 11:41 Resp 15 05/17/18 11:41 BP 125/66 05/17/18 11:41 Pulse Ox 100 05/17/18 11:41 Vital Signs Reviewed: Yes Eye Exam: Normal ENT: Positive: Pharynx normal, Nasal congestion, Nasal drainage - Clear Nasal coryza, right turbinates are swollen but not erythematous., TMs normal, Sinus tenderness, Uvula midline. Negative: Tonsillar swelling, Tonsillar exudate, Trismus, Muffled voice Neck: Positive: Supple, Nontender, No Lymphadenopathy Respiratory Exam: Normal Respiratory: Positive: Lungs clear, Normal breath sounds, No respiratory distress, No accessory muscle use Cardiovascular Exam: Normal Cardiovascular: Positive: RRR, No Murmur, Pulses Normal, Brisk Capillary Refill Abdominal Exam: Normal Abdomen Description: Positive: Nontender, No Organomegaly, Soft Bowel Sounds: Positive: Present Musculoskeletal Exam: Normal Neurological Exam: Normal Psychological Exam: Normal Skin Exam: Normal Throat Pain/Nasal Course/Dx - Course Course Of Treatment: Patient appears to have a viral upper respiratory illness. She is willing to try Flonase 2 sprays in each nostril once a day per week. - Differential Dx/Diagnosis Differential Diagnosis/HQI/PQRI: URI Provider Diagnosis: URI (upper respiratory infection) Discharge - Sign-Out/Discharge Documenting (check all that apply): Patient Departure All imaging exams completed and their final reports reviewed: No Studies - Discharge Plan Condition: Fair Disposition: HOME Prescriptions: Fluticasone NASAL SPRAY 50MCG* [Flonase NASAL SPRAY 50MCG*] 2 spray BOTH NARES DAILY 7 Days #1 btl Patient Education Materials: Upper Respiratory Infection in Children (ED) Forms: *Work Release Referrals: No Primary Care Phys,NOPCP [Primary Care Provider] - Additional Instructions: Increase fluids. Use her Flonase nasal spray 2 sprays in each nostril once a day for a week and then may decrease to 1 spray in each nostril once a day for a week. May try [id number] sinus medication as we discussed. Definite follow up with her primary care provider if no improvement in approximately for 5 days. If you need to establish care with a primary care provider you can call care connections at [phone] - Billing Disposition and Condition Condition: FAIR Disposition: Home
== END 2018-05-17 12:02 | disposition home or self-care (01) ==
LOC: UCCORT 10:11
DX: J06.9 Acute upper respiratory infection, unspecified (principal); Z87.891 Personal history of nicotine dependence
CPT/HCPCS: 99211; G0463

== ENCOUNTER 2018-08-01 18:10 | Emergency (ER) | payer BC ==
[2018-08-01 19:06] VITALS: BP 117/71
--- NOTE | 2018-08-01 19:29 | UC ---
UC General HPI - HPI Summary HPI Summary: pt is c/o a burning and some itching with urination since yesterday. she denies abdominal pain, flank pain, fever and vaginal discharge/lesions. she denies risk/concern for std's. - History of Current Complaint Chief Complaint: UCGU Stated Complaint: UTI SYMPTOMS Time Seen by Provider: 08/01/18 19:10 Hx Obtained From: Patient Hx Last Menstrual Period: 07/30/18 Pain Intensity: 6 Associated Signs & Symptoms: Negative: Fever - Allergy/Home Medications Allergies/Adverse Reactions: Allergies Allergy/AdvReac Type Severity Reaction Status Date / Time No Known Allergies Allergy Verified 08/01/18 19:06 PMH/Surg Hx/FS Hx/Imm Hx - Additional Past Medical History Additional PMH: BV, UTI, interstitial cystitis Psychological History: Depression - Surgical History Surgical History: Yes Surgery Procedure, Year, and Place: ovarian cyst - Family History Known Family History: Positive: Diabetes - maternal grandfather, Other - Mom with endometriosis Negative: Cardiac Disease, Hypertension, Blood Disorder - Social History Alcohol Use: Rare Substance Use Type: None Smoking Status (MU): Former Smoker Have You Smoked in the Last Year: No When Did the Patient Quit Smoking/Using Tobacco: 2017 - Immunization History Vaccination Up to Date: Yes Review of Systems All Other Systems Reviewed And Are Negative: Yes Constitutional: Negative: Fever Gastrointestinal: Negative: Abdominal Pain Genitourinary: Positive: Dysuria, Frequency, Urgency. Negative: Hematuria, Vaginal/Penile Burning, Vaginal/Penile Itching, Vaginal/Penile Discharge, Ulceration/Lesion Physical Exam Triage Information Reviewed: Yes Appearance: Well-Appearing Vital Signs: Initial Vital Signs Temp 98.9 F 08/01/18 19:00 Pulse 74 08/01/18 19:00 Resp 18 08/01/18 19:00 BP 117/71 08/01/18 19:00 Pulse Ox 100 08/01/18 19:00 Vital Signs Reviewed: Yes Eyes: Positive: Conjunctiva Clear Neck: Positive: Supple Respiratory: Positive: Lungs clear Cardiovascular: Positive: RRR Abdomen Description: Positive: Nontender, No Organomegaly, Soft. Negative: CVA Tenderness (R), CVA Tenderness (L) Bowel Sounds: Positive: Present Musculoskeletal: Positive: ROM Intact Neurological: Positive: Alert Psychological: Positive: Age Appropriate Behavior Skin Exam: Normal Diagnostics - Laboratory Lab Results: U/A=1+ LEUKOCYTES. CULTURE IS PENDING. Course/Dx - Differential Dx - Multi-Symptom Differential Diagnoses: Other - non toxic. no acute abdomen. no concern for pyelonephritis. no s/s's or risk/concern for sti's. will cover for a presumptive uti and have pt keep her urology f/u as scheduled. - Diagnoses Provider Diagnosis: Dysuria Discharge - Sign-Out/Discharge Documenting (check all that apply): Patient Departure All imaging exams completed and their final reports reviewed: No Studies - Discharge Plan Condition: Stable Disposition: HOME Prescriptions: Cephalexin CAP* [Keflex CAP*] 500 mg PO BID 7 Days #14 cap Patient Education Materials: Dysuria (ED) Referrals: SHANA Vasquez [Medical Doctor] - If Needed Additional Instructions: follow up with urology in [place] as scheduled for next month. - Billing Disposition and Condition Condition: STABLE Disposition: Home
== END 2018-08-01 20:03 | disposition home or self-care (01) ==
LOC: UCCORT 18:10
DX: R30.0 Dysuria (principal); Z87.891 Personal history of nicotine dependence
CPT/HCPCS: 81003; 87077; 87086; 99212; G0463

== ENCOUNTER 2018-08-05 09:51 | Emergency (ER) | payer BC ==
[2018-08-05 10:58] VITALS: BP 118/72
--- NOTE | 2018-08-05 11:25 | UC ---
UC General HPI - HPI Summary HPI Summary: pt is c/o a 1 week hx of burning and itching with urination. it involves the urethra and general area. she was seen here earlier this week and tx with keflex without relief. she denies fever, abdominal pain, vaginal discharge and lesions. pt does not think she is at risk for any std's. she did try a leftover azo type medication the day after her UC visit but got no relief. it just turned the urine "orange". - History of Current Complaint Chief Complaint: UCGU Stated Complaint: URINARY RECHECK Time Seen by Provider: 08/05/18 11:00 Hx Obtained From: Patient Hx Last Menstrual Period: 07/30/18 Onset/Duration: Gradual Onset Timing: Constant Pain Intensity: 6 Associated Signs & Symptoms: Positive: Dysuria. Negative: Abdominal Pain, Fever - Allergy/Home Medications Allergies/Adverse Reactions: Allergies Allergy/AdvReac Type Severity Reaction Status Date / Time No Known Allergies Allergy Verified 08/05/18 10:59 PMH/Surg Hx/FS Hx/Imm Hx - Additional Past Medical History Additional PMH: cystitis - Surgical History Surgical History: Yes Surgery Procedure, Year, and Place: ovarian cyst - Family History Known Family History: Positive: Diabetes - maternal grandfather, Other - Mom with endometriosis Negative: Cardiac Disease, Hypertension, Blood Disorder - Social History Alcohol Use: Rare Substance Use Type: None Smoking Status (MU): Former Smoker Have You Smoked in the Last Year: No When Did the Patient Quit Smoking/Using Tobacco: 2017 - Immunization History Vaccination Up to Date: Yes Review of Systems All Other Systems Reviewed And Are Negative: No Constitutional: Negative: Fever, Chills Gastrointestinal: Negative: Abdominal Pain Genitourinary: Positive: Dysuria, Vaginal/Penile Burning. Negative: Hematuria, Vaginal/Penile Itching, Vaginal/Penile Discharge, Ulceration/Lesion, Abnormal Bleeding Physical Exam Triage Information Reviewed: Yes Appearance: Well-Appearing Vital Signs: Initial Vital Signs Temp 98.7 F 08/05/18 10:53 Pulse 83 08/05/18 10:53 Resp 18 08/05/18 10:53 BP 118/72 08/05/18 10:53 Pulse Ox 100 08/05/18 10:53 Vital Signs Reviewed: Yes Eyes: Positive: Conjunctiva Clear ENT: Positive: Normal ENT inspection Neck: Positive: Supple, Nontender, No Lymphadenopathy Respiratory: Positive: Lungs clear, Normal breath sounds Cardiovascular: Positive: RRR, No Murmur Abdomen Description: Positive: Nontender, No Organomegaly, Soft. Negative: CVA Tenderness (R), CVA Tenderness (L) Bowel Sounds: Positive: Present Pelvic Exam: Positive: Other - External, speculum and bimanual exams are unremarkable except for the c/o burning which any associated touching of those areas. Musculoskeletal: Positive: ROM Intact Neurological: Positive: Alert Psychological: Positive: Age Appropriate Behavior Skin Exam: Normal Diagnostics - Laboratory Lab Results: culture on 08/01/18 was + for group B strep. U/A=1+ blood, 1+ bilirubin, 0.2 urobilinogen but no leukocytes or nitrites. mycoplasma and ureaplasma urine cultures plus pelvic cultures are being sent. Course/Dx - Differential Dx - Multi-Symptom Differential Diagnoses: Other - no overt sti's/pelvic infections but cultures are pending. leukocytes in urine have cleared, pt will complete the keflex as directed. need for pelvic rest has been stressed. last aircraft body repairer exam was with Dr Jack (web knitter) a few months ago thus will refer pt back to him. - Diagnoses Provider Diagnosis: Dysuria, Vaginitis Discharge - Sign-Out/Discharge Documenting (check all that apply): Patient Departure All imaging exams completed and their final reports reviewed: No Studies - Discharge Plan Condition: Stable Disposition: HOME Patient Education Materials: Vaginitis (ED), Dysuria (ED) Referrals: Panfilo Jack MD [Medical Doctor] - As Soon As Possible Additional Instructions: COMPLETE THE KEFLEX DIRECTED. PELVIC REST UNTIL SYMPTOMS RESOLVE. - Billing Disposition and Condition Condition: STABLE Disposition: Home
--- NOTE | 2018-08-07 07:17 | UC ---
- Progress Note Progress Note: neg gardnerella neg sonny no change ljj 08/07/18 Course/Dx - Diagnoses Provider Diagnoses: Dysuria, Vaginitis Discharge - Sign-Out/Discharge Documenting (check all that apply): Post-Discharge Follow Up All imaging exams completed and their final reports reviewed: No Studies - Discharge Plan Condition: Stable Disposition: HOME Patient Education Materials: Vaginitis (ED), Dysuria (ED) Referrals: Panfilo Jack MD [Medical Doctor] - As Soon As Possible Additional Instructions: COMPLETE THE KEFLEX DIRECTED. PELVIC REST UNTIL SYMPTOMS RESOLVE. - Billing Disposition and Condition Condition: STABLE Disposition: Home
[2018-08-07 13:53] LABS: Neisseria gonorrhoeae (GC) RNA Negative (Negative)
[2018-08-07 14:08] LABS: Trichomonas vaginalis Result Negative (Negative)
[2018-08-09 15:57] LABS: Ureaplasma Source URINE; Ureaplasma parvum PCR Negative; Ureaplasma urealyticum PCR Negative
[2018-08-09 15:59] LABS: Mycoplasma hominis Result Negative; Mycoplasma hominis Source URINE
== END 2018-08-05 12:49 | disposition home or self-care (01) ==
LOC: UCCORT 09:51
DX: Z51.89 Encounter for other specified aftercare (principal); R30.0 Dysuria; N76.0 Acute vaginitis; Z87.891 Personal history of nicotine dependence
CPT/HCPCS: 81003; 87480; 87491; 87510; 87591; 87661; 87798; 99212; G0463

== ENCOUNTER 2019-01-18 17:25 | Emergency (ER) | payer BC ==
[2019-01-18 18:41] VITALS: BP 126/81
--- NOTE | 2019-01-18 19:11 | UC ---
Throat Pain/Nasal Jonatan HPI - HPI Summary HPI Summary: One week history of gum irritation along with small sore spots under the tongue , getting worse. Using Listerine once or twice daily. No fever, having some pain in the oropharynx as well. - History of Current Complaint Chief Complaint: UCGeneralIllness Stated Complaint: ORAL COMPLAINT Time Seen by Provider: 01/18/19 18:59 Hx Obtained From: Patient Hx Last Menstrual Period: 01/10/19 Onset/Duration: Gradual Onset, Lasting Days - 7 or 8 Severity: Moderate Pain Intensity: 8 Cough: None Associated Signs & Symptoms: Negative: Dysphagia, Hoarseness, Fever - Epiglottits Risk Factors Epiglottis Risk Factors: Negative - Allergies/Home Medications Allergies/Adverse Reactions: Allergies Allergy/AdvReac Type Severity Reaction Status Date / Time No Known Allergies Allergy Verified 01/18/19 18:41 PMH/Surg Hx/FS Hx/Imm Hx Previously Healthy: Yes Psychological History: Depression - Surgical History Surgical History: Yes Surgery Procedure, Year, and Place: ovarian cyst - Family History Known Family History: Positive: Diabetes - maternal grandfather, Other - Mom with endometriosis, depression Negative: Cardiac Disease, Hypertension, Blood Disorder - Social History Occupation: Employed Full-time Lives: With Family Alcohol Use: Rare Substance Use Type: None Smoking Status (MU): Former Smoker Have You Smoked in the Last Year: No When Did the Patient Quit Smoking/Using Tobacco: 2017 - Immunization History Vaccination Up to Date: Yes Review of Systems All Other Systems Reviewed And Are Negative: Yes Constitutional: Positive: Negative Skin: Positive: Negative Eyes: Positive: Negative ENT: Positive: Sore Throat, Other - oral pain Respiratory: Negative: Shortness Of Breath, Cough Cardiovascular: Negative: Chest Pain Gastrointestinal: Positive: Negative Genitourinary: Positive: Negative Neurological: Positive: Headache - chronic daily headaches x 6 months, seeing PMD next week. Psychological: Positive: Depressed - has not found a med which works for her. Is Patient Immunocompromised?: No Physical Exam Triage Information Reviewed: Yes Appearance: Well-Appearing, No Pain Distress Vital Signs: Initial Vital Signs Temp 99.6 F 01/18/19 18:38 Pulse 89 01/18/19 18:38 Resp 16 01/18/19 18:38 BP 126/81 01/18/19 18:38 Pulse Ox 100 01/18/19 18:38 Vital Signs Reviewed: Yes Eyes: Positive: Conjunctiva Clear ENT: Positive: Pharynx normal, Other - No gum swelling, some regression lower right molars, but overall healthy. Underside of tongue with cluster of superficial erosions. Dental Exam: Normal Neck: Positive: Supple, Nontender, No Lymphadenopathy Respiratory: Positive: Lungs clear, Normal breath sounds Cardiovascular: Positive: RRR, No Murmur Musculoskeletal Exam: Normal Neurological Exam: Normal Psychological Exam: Normal Skin Exam: Normal Throat Pain/Nasal Course/Dx - Course Course Of Treatment: viral stomatitis, suggested discontinuation of Listerine, use of magic mouthwash. - Differential Dx/Diagnosis Differential Diagnosis/HQI/PQRI: Laryngitis, URI, Other - stomatitis Provider Diagnosis: Viral stomatitis Discharge ED - Sign-Out/Discharge Documenting (check all that apply): Patient Departure All imaging exams completed and their final reports reviewed: No Studies - Discharge Plan Condition: Stable Disposition: HOME Prescriptions: Magic Mouth Was-SILVER/MAAL/LIDO* 5 ml SWISH SPIT QID #100 ml Patient Education Materials: Gingivostomatitis (ED) Referrals: No Primary Care Phys,NOPCP [Primary Care Provider] - Additional Instructions: Discontinue use of Listerine, and use magic mouthwash for relief of symptoms. Follow up with your primary care doctor with regard to headache management and treatment. - Billing Disposition and Condition Condition: STABLE Disposition: Home
== END 2019-01-18 19:33 | disposition home or self-care (01) ==
LOC: UCCORT 17:25
DX: K12.1 Other forms of stomatitis (principal); R51 Headache; F32.9 Major depressive disorder, single episode, unspecified; J02.9 Acute pharyngitis, unspecified; Z87.891 Personal history of nicotine dependence
CPT/HCPCS: 99212; G0463

== ENCOUNTER 2019-03-08 10:45 | Emergency (ER) | payer BC ==
--- OUTSIDE RECORDS SUMMARY | 2019-03-08 12:18 | XMS REPORT ---
:1995 Author Organization [facility] Address [address] [place] [address] Care Team Providers Name Role Phone MING ANGELA Unavailable Unavailable PROBLEMS Type Condition ICD9-CM Code [id number] Code Onset Condition SNOMED Code Dates Status Problem Migraine with G43.109 Active 7172909 aura and without status migrainosus, not intractable Problem Anxiety F41.9 Active 58972046 Problem Depression with F41.8 Active 649599701 anxiety Problem Migraine with G43.109 Active 7127263 visual aura ALLERGIES No Information ENCOUNTERS Encounter Location Date Diagnosis [facility] [address] [facility] Dec, Associates [facility] [address] [place] [address] [facility] [address] [facility] Feb, Associates [facility] [address] [place] [phone] [facility] [address] [facility] Jan, Associates [facility] [address] [place] [phone] [facility] [address] [facility] Jan, [address] [facility] [address] [place] [address] [facility] [address] [facility] Jan, [facility] [address] [place] [address] [facility] [address] [facility] Jan, Anxiety F41.9 and [facility] Associates [place] [address] with visual aura G43.109 [place] [address] [facility] [address] [facility] Dec, Chest pain, unspecified Associates [facility] [address] type R07.9 ; Anxiety F41.9 [place], [place] and Nausea R11.0 [address] [facility] [address] [facility] Dec, Associates [facility] [address] [facility] [place] [address] [facility] [address] [facility] Dec, Physical exam Z00.00 ; Associates [facility] [address] Encounter for hepatitis C [place], [place] screening test for low [id number] risk patient Z11.59 ; Screening for condition Z13.9 ; Encounter for immunization Z23 ; BMI 24.0-24.9, adult Z68.24 ; Depression with anxiety F41.8 and Fatigue, unspecified type R53.83 [facility] [address] [facility] Dec, [facility] [address] [place] [address] IMMUNIZATIONS No Known Immunizations SOCIAL HISTORY Never Assessed REASON FOR REFERRAL FUNCTIONAL STATUS PLAN OF CARE VITAL SIGNS MEDICATIONS Unknown Medications PROCEDURES No Known procedures RESULTS No Results REASON FOR VISIT Cancelled Appt, 3RD MSG, 02/19/19 Insurance Providers [facility] Member Patient Patient Patient Patient Patient Subscriber Subscriber Subscriber Group Insurance Plan Plan Plan Plan ID Relationship Address Phone Name Date of ID Name Date of No Type Insurance Insurance Insurance Coverage to Subscriber Address Phone Name Dates BCBS OF [phone] [employer] [place] [id number] [place] [id number] [place] [address] [address] [facility] [id number] MEDICAL (GENERAL) HISTORY Type Description Date Medical History PULM: asthma Medical History URO: overactive bladder (was on amitriptyline - currently doing therapy) Medical History PSCYH: anxiety; depression Surgical History laproscopic left ovarian cyst removal + removal of 04/2018 endometrial material Hospitalization History [facility] - anxiety 01/2019
--- OUTSIDE RECORDS SUMMARY | 2019-03-08 12:18 | XMS REPORT ---
:1995 Author Organization [facility] Address [address] [place] [address] Care Team Providers Name Role Phone MING ANGELA Unavailable Unavailable PROBLEMS Type Condition ICD9-CM Code [id number] Code Onset Condition SNOMED Code Dates Status Problem Migraine with G43.109 Active 1415128 aura and without status migrainosus, not intractable Problem Anxiety F41.9 Active 02697603 Problem Depression with F41.8 Active 684351752 anxiety Problem Migraine with G43.109 Active 8670148 visual aura ALLERGIES No Information ENCOUNTERS Encounter Location Date Diagnosis [facility] [address] [facility] Dec, Associates [facility] [address] [place] [phone] [facility] [address] [facility] Feb, Associates [facility] [address] [place] [phone] [facility] [address] [facility] Jan, Associates [facility] [address] [place] [phone] [facility] [address] [facility] Jan, Associates [facility] [address] [place] [phone] [facility] [address] [facility] Jan, Associates [facility] [address] [place] [phone] [facility] [address] [facility] Jan, Anxiety F41.9 and Associates [facility] [address] Migraine with visual aura [place], [place] [phone] G43.109 [facility] [address] [facility] Dec, Chest pain, unspecified Associates [facility] [address] type R07.9 ; Anxiety [place], [place] [phone] F41.9 and Nausea R11.0 [facility] [address] [facility] Dec, Associates [facility] [address] [place] [phone] [facility] [address] [facility] Dec, Physical exam Z00.00 ; Associates [facility] [address] Encounter for hepatitis C [place] [phone] screening test for low risk patient Z11.59 ; Screening for condition Z13.9 ; Encounter for immunization Z23 ; BMI 24.0-24.9, adult Z68.24 ; Depression with anxiety F41.8 and Fatigue, unspecified type R53.83 [facility] [address] [facility] Dec, Formerly named [facility] [address] [place] [id number] IMMUNIZATIONS No Known Immunizations SOCIAL HISTORY Never Assessed REASON FOR REFERRAL FUNCTIONAL STATUS PLAN OF CARE VITAL SIGNS MEDICATIONS Unknown Medications PROCEDURES No Known procedures RESULTS No Results REASON FOR VISIT Medical records Insurance Providers [facility] Member Patient Patient Patient Patient Patient Subscriber Subscriber Subscriber Group Insurance Plan Plan Plan Plan ID Relationship Address Phone Name Date of ID Name Date of No Type Insurance Insurance Insurance Coverage to Subscriber Address Phone Name Dates BCBS OF [phone] [place] [id number] [place] [id number] [place] [address] [facility] [id number] MEDICAL (GENERAL) HISTORY Type Description Date Medical History PULM: asthma Medical History URO: overactive bladder (was on amitriptyline - currently doing therapy) Medical History PSCYH: anxiety; depression Surgical History laproscopic left ovarian cyst removal + removal of 04/2018 endometrial material Hospitalization History [facility] - anxiety 01/2019
--- OUTSIDE RECORDS SUMMARY | 2019-03-08 12:18 | XMS REPORT ---
:1995 Author Organization [facility] Address [address] [place] [id number] Care Team Providers Name Role Phone MING ANGELA Unavailable Unavailable PROBLEMS Type Condition ICD9-CM Code [id number] Code Onset Condition SNOMED Code Dates Status Problem Migraine with G43.109 Active 7554619 aura and without status migrainosus, not intractable Problem Anxiety F41.9 Active 02230248 Problem Depression with F41.8 Active 671969271 anxiety Problem Migraine with G43.109 Active 1835111 visual aura ALLERGIES No Information ENCOUNTERS Encounter Location Date Diagnosis [facility] [address] [facility] Dec, Associates [facility] [address] [place] [address] [id number] [facility] [address] [facility] Feb, Associates [facility] [address] [place] [address] [id number] [facility] [address] [facility] Jan, Associates [facility] [address] [place] [address] [id number] [facility] [address] [facility] Jan, Associates [facility] Street [address] [place] [address] [id number] [facility] [address] [facility] Jan, Associates [facility] [address] [place] [address] [id number] [facility] [address] [facility] Jan, Anxiety F41.9 and Associates [facility] [address] Migraine with visual aura [place], [place] [id number] G43.109 [facility] [address] [facility] Dec, Chest pain, unspecified Associates [facility] [address] type R07.9 ; Anxiety [place], [place] [id number] F41.9 and Nausea R11.0 [facility] [address] [facility] Dec, Associates [facility] [address] [place] [address] [id number] [facility] [address] [facility] Dec, Physical exam Z00.00 ; Associates [facility] [address] Encounter for hepatitis C [place] [id number] screening test for low risk patient Z11.59 ; Screening for condition Z13.9 ; Encounter for immunization Z23 ; BMI 24.0-24.9, adult Z68.24 ; Depression with anxiety F41.8 and Fatigue, unspecified type R53.83 [facility] [address] [facility] Dec, [facility] [address] [place] [id number] IMMUNIZATIONS No Known Immunizations SOCIAL HISTORY Never Assessed REASON FOR REFERRAL FUNCTIONAL STATUS PLAN OF CARE VITAL SIGNS MEDICATIONS Unknown Medications PROCEDURES No Known procedures RESULTS No Results REASON FOR VISIT Needs call back from [place] Insurance Providers [facility] Health Member Patient Patient Patient Patient Patient Subscriber Subscriber Subscriber Group Insurance Plan Plan Plan Plan ID Relationship Address Phone Name Date of ID Name Date of No Type Insurance Insurance Insurance Coverage to Subscriber Address Phone Name Dates BCBS OF [phone] [employer] [place] [id number] [place] [id number] [place] [address] [facility] [id number] MEDICAL (GENERAL) HISTORY Type Description Date Medical History PULM: asthma Medical History URO: overactive bladder (was on amitriptyline - currently doing therapy) Medical History PSCYH: anxiety; depression Surgical History laproscopic left ovarian cyst removal + removal of 04/2018 endometrial material Hospitalization History [facility] - anxiety 01/2019
--- OUTSIDE RECORDS SUMMARY | 2019-03-08 12:18 | XMS REPORT ---
:1995 Author Organization [facility] Address [address] [place] [address] Care Team Providers Name Role Phone MING ANGELA Unavailable Unavailable PROBLEMS Type Condition ICD9-CM Code [id number] Code Onset Condition SNOMED Code Dates Status Problem Migraine with G43.109 Active 9013809 aura and without status migrainosus, not intractable Problem Anxiety F41.9 Active 38466557 Problem Depression with F41.8 Active 990127382 anxiety Problem Migraine with G43.109 Active 6363392 visual aura ALLERGIES No Known Allergies ENCOUNTERS Encounter Location Date Diagnosis [facility] [facility] Dec, Associates [facility] [address] [place] [address] [id number] [facility] [address] [facility] Feb, Associates [facility] [address] [place] [address] [id number] [facility] [address] [facility] Jan, Associates [facility] [address] [place] [address] [id number] [facility] [address] [facility] Jan, Associates [facility] [address] [place] [address] [id number] [facility] [address] [facility] Jan, Associates [facility] [address] [place] [address] [id number] [facility] Jan, Anxiety F41.9 and Associates [facility] [address] Migraine with visual aura [place], [place] [id number] G43.109 [facility] [address] [facility] Dec, Chest pain, unspecified Associates [facility] [address] type R07.9 ; Anxiety [place], [place] [id number] F41.9 and Nausea R11.0 [facility] [address] [facility] Dec, Associates [facility] [address] [id number] [facility] [address] [place] [address] Dec, Physical exam Z00.00 ; Associates [facility] 301 Encounter for hepatitis C [place], [place] [id number] screening test for low risk patient Z11.59 ; Screening for condition Z13.9 ; Encounter for immunization Z23 ; BMI 24.0-24.9, adult Z68.24 ; Depression with anxiety F41.8 and Fatigue, unspecified type R53.83 [facility] [address] [place] [address] Dec, [address] [id number] IMMUNIZATIONS No Known Immunizations SOCIAL HISTORY Never Assessed REASON FOR REFERRAL FUNCTIONAL STATUS PLAN OF CARE Activity Details Follow Up 2 Weeks Reason: VITAL SIGNS Weight 140.4 lbs 2019-01-22 Temperature 97.5 degrees Fahrenheit 2019-01-22 Height 63.25 in 2019-01-22 Oximetry 100 2019-01-22 BMI 24.67 kg/m2 2019-01-22 Heart Rate 80 /min 2019-01-22 Blood pressure systolic 104 mm Hg 2019-01-22 Blood pressure diastolic 82 mm Hg 2019-01-22 MEDICATIONS Medication Instructions Dosage Frequency Start End Date Duration Status Date Sumatriptan orally once 1 tab(s) 18 Nov, 6 Dec, 9 days Active Succinate 25 mg 2018 2018 Tri-Sprintec orally once a 1 tab(s) 24h Active triphasic 35 mcg day lorazepam 0.5 mg orally BID PRN 1 tab(s) 18 Nov, 30 day(s) Active 2019 oxybutynin 10 orally once a 1 tab(s) 24h Active mg/24 hr day PROCEDURES No Known procedures RESULTS No Results REASON FOR VISIT 1 Month Insurance Providers [facility] Member Patient Patient Patient Patient Patient Subscriber Subscriber Subscriber Group Insurance Plan Plan Plan Plan ID Relationship Address Phone Name Date of ID Name Date of No Type Insurance Insurance Insurance Coverage to Subscriber Address Phone Name Dates [employer] [place] [place] [phone] [employer] [place] [id number] [place] [id number] [place] [address] [place] [address] MEDICAL (GENERAL) HISTORY Type Description Date Medical History PULM: asthma Medical History URO: overactive bladder (was on amitriptyline - currently doing therapy) Medical History PSCYH: anxiety; depression Surgical History laproscopic left ovarian cyst removal + removal of 04/2018 endometrial material Hospitalization History [facility] - anxiety 01/2019
[2019-03-08 12:33] VITALS: BP 139/93
--- NOTE | 2019-03-08 12:47 | UC ---
Respiratory Complaint HPI - HPI Summary HPI Summary: 23 y/o Felame with URI Sx. Started with nasal congestion and tight throat, sore throat and post nasal drip with occasional non-productive cough. Pt reports fever and chills, denies n/v/d. patient was exposed to strep throat recently by a family member and presents today with white patches on her tonsils. - History of Current Complaint Chief Complaint: UCGeneralIllness Stated Complaint: CONGESTION,SORE,RED THROAT,COUGH Time Seen by Provider: 03/08/19 12:45 Hx Obtained From: Patient Hx Last Menstrual Period: current Onset/Duration: Gradual Onset Timing: Constant Pain Intensity: 8 Character: Cough: Nonproductive - Allergies/Home Medications Allergies/Adverse Reactions: Allergies Allergy/AdvReac Type Severity Reaction Status Date / Time No Known Allergies Allergy Verified 03/08/19 12:26 Home Medications: Home Medications Amitriptyline TAB* [Elavil TAB*] 25 mg PO BEDTIME 03/08/19 [History Confirmed ] PMH/Surg Hx/FS Hx/Imm Hx Previously Healthy: Yes GI/ History: Other - IC - Surgical History Surgical History: Yes Surgery Procedure, Year, and Place: ovarian cyst - Family History Known Family History: Positive: Diabetes - maternal grandfather, Other - Mom with endometriosis, depression Negative: Cardiac Disease, Hypertension, Blood Disorder - Social History Alcohol Use: Rare Substance Use Type: None Smoking Status (MU): Former Smoker Type: Cigarettes Have You Smoked in the Last Year: No When Did the Patient Quit Smoking/Using Tobacco: 2017 - Immunization History Vaccination Up to Date: Yes Review of Systems All Other Systems Reviewed And Are Negative: Yes Constitutional: Positive: Fatigue ENT: Positive: Sore Throat, Ear Ache, Nasal Discharge, Sinus Congestion, Sinus Pain/Tenderness Respiratory: Positive: Cough Is Patient Immunocompromised?: No Physical Exam Triage Information Reviewed: Yes Appearance: Well-Appearing, No Pain Distress, Well-Nourished Vital Signs: Initial Vital Signs Temp 99.6 F 03/08/19 12:24 Pulse 118 03/08/19 12:24 Resp 16 03/08/19 12:24 BP 139/93 03/08/19 12:24 Pulse Ox 100 03/08/19 12:24 Vital Signs Reviewed: Yes Eye Exam: Normal ENT Exam: Normal ENT: Positive: Pharyngeal erythema, Nasal congestion, TM dull, Tonsillar swelling, Tonsillar exudate Dental Exam: Normal Neck exam: Normal Neck: Positive: 1 Respiratory Exam: Normal Cardiovascular Exam: Normal Musculoskeletal Exam: Normal Neurological Exam: Normal Psychological Exam: Normal Skin Exam: Normal Respiratory Course/Dx - Course Course Of Treatment: patient with sore throat, tonsillar exudate with mildly swollen tonsils with recent exposure to strep throat by a family member. based on clinical presentation will treat. Start antibiotics. Patient and mother agreeable to plan as well as to side effects of medications. If symptoms worsen go to emergency room. - Differential Dx/Diagnosis Differential Diagnosis/HQI/PQRI: Bronchitis, Influenza, Lower Resp Infection, Sinusitis, Other - strep throat Provider Diagnosis: Strep pharyngitis Discharge ED - Sign-Out/Discharge Documenting (check all that apply): Patient Departure All imaging exams completed and their final reports reviewed: No Studies - Discharge Plan Condition: Critical Disposition: HOME Referrals: Non Staff,Doctor [Primary Care Provider] - 3 Days - Billing Disposition and Condition Condition: CRITICAL Disposition: Home
== END 2019-03-08 13:08 | disposition home or self-care (01) ==
LOC: UCCORT 10:45
DX: J02.0 Streptococcal pharyngitis (principal); R05 Cough; R09.82 Postnasal drip; Z87.891 Personal history of nicotine dependence
CPT/HCPCS: 99212; G0463